=== PATIENT | female | born 1950 | race Caucasian/White ===

== ENCOUNTER 2016-11-20 07:36 | Outpatient (RCR) | payer MEDICARE ==
[~2016-11-20] VITALS: Ht 30.5 cm; Wt 0.5 kg
[2016-11-20] MEDS ORDERED: Midazolam 2mg/2ml Inj ONE (07:37)
[2016-11-20] MEDS ORDERED: Ketamine 500mg Inj ONE (07:37)
[2016-11-20] MEDS ORDERED: NS 550ML IV ONE (07:37)
[2016-11-20] MEDS ORDERED: Succinylcholine 20mg/ml 10ml vial ONE (07:37)
== END 2016-11-26 | disposition home or self-care (01) ==
LOC: ECT 07:36
DX: F33.2 Major depressive disorder, recurrent severe without psychotic features (principal); G47.33 Obstructive sleep apnea (adult) (pediatric); Z98.84 Bariatric surgery status
CPT/HCPCS: 90870; J0330; J2250; J3490; J7040

== ENCOUNTER 2016-12-16 07:17 | Outpatient (RCR) | payer MEDICARE ==
[~2016-12-16] VITALS: Ht 157.5 cm; Wt 118.4 kg
[2016-12-23] MEDS ORDERED: Succinylcholine 20mg/ml 10ml vial ONE (12:00)
[2016-12-23] MEDS ORDERED: NS 550ML IV ONE (12:00)
[2016-12-23] MEDS ORDERED: Midazolam 2mg/2ml Inj ONE (12:00)
[2016-12-23] MEDS ORDERED: Ketamine 500mg Inj ONE (12:00)
== END 2016-12-24 | disposition home or self-care (01) ==
LOC: ECT 07:17
DX: F33.2 Major depressive disorder, recurrent severe without psychotic features (principal); G47.33 Obstructive sleep apnea (adult) (pediatric); Z98.84 Bariatric surgery status
CPT/HCPCS: 90870; J0330; J2250; J2405; J3490; J7040

== ENCOUNTER 2017-01-20 06:11 | Outpatient (RCR) | payer MEDICARE ==
[~2017-01-20] VITALS: Ht 157.5 cm; Wt 118.4 kg
[2017-01-20] MEDS ORDERED: NS 550ML IV ONE (06:12)
[2017-01-20] MEDS ORDERED: Succinylcholine 20mg/ml 10ml vial ONE (06:12)
[2017-01-20] MEDS ORDERED: Midazolam 2mg/2ml Inj ONE (06:12)
[2017-01-20] MEDS ORDERED: Ketamine 500mg Inj ONE (06:12)
== END 2017-01-24 | disposition home or self-care (01) ==
LOC: ECT 06:11
DX: F33.2 Major depressive disorder, recurrent severe without psychotic features (principal); Z88.1 Allergy status to other antibiotic agents; Z88.0 Allergy status to penicillin
CPT/HCPCS: 90870; J0330; J2250; J3490; J7040

== ENCOUNTER 2017-02-26 05:39 | Outpatient (RCR) | payer MEDICARE ==
[~2017-02-26] VITALS: Ht 157.5 cm; Wt 118.4 kg
[2017-03-03] MEDS ORDERED: Ketamine 500mg Inj ONE (08:00)
[2017-03-03] MEDS ORDERED: Midazolam 2mg/2ml Inj ONE (08:00)
[2017-03-03] MEDS ORDERED: Succinylcholine 20mg/ml 10ml vial ONE (08:00)
[2017-03-03] MEDS ORDERED: NS 550ML IV ONE (08:00)
== END 2017-03-26 | disposition home or self-care (01) ==
LOC: ECT 05:39
DX: F33.2 Major depressive disorder, recurrent severe without psychotic features (principal); G47.33 Obstructive sleep apnea (adult) (pediatric); Z98.84 Bariatric surgery status
CPT/HCPCS: 90870; J0330; J2250; J3490; J7040

== ENCOUNTER 2017-03-31 06:47 | Outpatient (RCR) | payer MEDICARE ==
[~2017-03-31] VITALS: Ht 165.1 cm; Wt 72.6 kg
[2017-03-31] MEDS ORDERED: Succinylcholine 20mg/ml 10ml vial ONE (06:48)
[2017-03-31] MEDS ORDERED: Ketamine 500mg Inj ONE (06:48)
[2017-03-31] MEDS ORDERED: Midazolam 2mg/2ml Inj ONE (06:48)
[2017-03-31] MEDS ORDERED: NS 550ML IV ONE (06:48)
[2017-03-31] MEDS ORDERED: Atropine Sulfate 0.4mg/ml inj IVP PRN (10:23)
== END 2017-04-25 | disposition home or self-care (01) ==
LOC: ECT 06:47
DX: F33.2 Major depressive disorder, recurrent severe without psychotic features (principal)
CPT/HCPCS: 90870; J0330; J2250; J2405; J3490; J7040

== ENCOUNTER 2017-05-05 06:29 | Outpatient (RCR) | payer MEDICARE ==
[~2017-05-05] VITALS: Ht 157.5 cm; Wt 118.4 kg
[2017-05-05] MEDS ORDERED: Succinylcholine 20mg/ml 10ml vial ONE (06:30)
[2017-05-05] MEDS ORDERED: Ketamine 500mg Inj ONE (06:30)
[2017-05-05] MEDS ORDERED: NS 550ML IV ONE (06:30)
[2017-05-05] MEDS ORDERED: Midazolam 2mg/2ml Inj ONE (06:30)
== END 2017-05-26 | disposition home or self-care (01) ==
LOC: ECT 06:29
DX: F33.2 Major depressive disorder, recurrent severe without psychotic features (principal)
CPT/HCPCS: 90870; J0330; J2250; J2405; J3490; J7040

== ENCOUNTER 2017-06-02 07:18 | Outpatient (RCR) | payer MEDICARE ==
[~2017-06-02] VITALS: Ht 157.5 cm; Wt 118.4 kg
[2017-06-02] MEDS ORDERED: NS 550ML IV ONE (07:19)
[2017-06-02] MEDS ORDERED: Succinylcholine 20mg/ml 10ml vial ONE (07:19)
[2017-06-02] MEDS ORDERED: Ketamine 500mg Inj ONE (07:19)
[2017-06-02] MEDS ORDERED: Midazolam 2mg/2ml Inj ONE (07:19)
== END 2017-06-26 | disposition home or self-care (01) ==
LOC: ECT 07:18
DX: F33.2 Major depressive disorder, recurrent severe without psychotic features (principal)
CPT/HCPCS: 90870; J0330; J2250; J2405; J3490; J7040

== ENCOUNTER 2017-07-02 09:03 | Outpatient (RCR) | payer MEDICARE ==
[~2017-07-02] VITALS: Ht 157.5 cm; Wt 118.4 kg
[2017-07-02] MEDS ORDERED: NS 500ML IV ONE (09:04)
[2017-07-02] MEDS ORDERED: Ketamine 500mg Inj ONE (09:04)
[2017-07-02] MEDS ORDERED: Succinylcholine 20mg/ml 10ml vial ONE (09:04)
[2017-07-02] MEDS ORDERED: Sodium Chloride 500ML 500 ML IV ONE (16:45)
== END 2017-07-26 | disposition home or self-care (01) ==
LOC: ECT 09:03
DX: F33.2 Major depressive disorder, recurrent severe without psychotic features (principal)
CPT/HCPCS: 90870; J0330; J2405; J3490; J7040

== ENCOUNTER 2017-08-04 07:14 | Outpatient (RCR) | payer MEDICARE ==
[~2017-08-04] VITALS: Ht 157.5 cm; Wt 118.4 kg
[2017-08-04] MEDS ORDERED: Ketamine 500mg Inj ONE (07:15)
[2017-08-04] MEDS ORDERED: Midazolam 2mg/2ml Inj ONE (07:15)
[2017-08-04] MEDS ORDERED: NS 500ML IV ONE (07:15)
[2017-08-04] MEDS ORDERED: Succinylcholine 20mg/ml 10ml vial ONE (07:15)
[2017-08-11] MEDS ORDERED: Sodium Chloride 500ML 500 ML IV ONE (10:54)
== END 2017-08-26 | disposition home or self-care (01) ==
LOC: ECT 07:14
DX: F33.2 Major depressive disorder, recurrent severe without psychotic features (principal)
CPT/HCPCS: 90870; J0330; J2250; J2405; J3490; J7040

== ENCOUNTER 2017-09-10 07:28 | Outpatient (RCR) | payer MEDICARE ==
[~2017-09-10] VITALS: Ht 157.5 cm; Wt 118.4 kg
[2017-09-10] MEDS ORDERED: Succinylcholine 20mg/ml 10ml vial ONE (07:29)
[2017-09-10] MEDS ORDERED: Midazolam 2mg/2ml Inj ONE (07:29)
[2017-09-10] MEDS ORDERED: NS 500ML ONE (07:29)
[2017-09-10] MEDS ORDERED: Ketamine 500mg Inj ONE (07:29)
[2017-09-10 09:45] VITALS: BP 144/99
[2017-09-10] MEDS ORDERED: Sodium Chloride 500ML 500 ML IV ONE (10:04)
[2017-09-10 10:05] VITALS: BP 135/56
[2017-09-10 10:10] VITALS: BP 113/50
[2017-09-10 10:15] VITALS: BP 117/56
[2017-09-10 10:20] VITALS: BP 115/59
== END 2017-09-25 | disposition home or self-care (01) ==
LOC: ECT 07:28
DX: F33.2 Major depressive disorder, recurrent severe without psychotic features (principal)
CPT/HCPCS: 90870; J0330; J2250; J2405; J3490; J7040

== ENCOUNTER 2017-09-29 06:10 | Outpatient (RCR) | payer MEDICARE ==
[~2017-09-29] VITALS: Ht 30.5 cm; Wt 0.5 kg
[2017-09-29] MEDS ORDERED: Ketamine 500mg Inj ONE (06:11)
[2017-09-29] MEDS ORDERED: NS 500ML ONE (06:11)
[2017-09-29] MEDS ORDERED: Midazolam 2mg/2ml Inj ONE (06:11)
[2017-09-29] MEDS ORDERED: Succinylcholine 20mg/ml 10ml vial ONE (06:11)
[2017-09-29 10:44] VITALS: BP 126/78
[2017-09-29] MEDS ORDERED: Sodium Chloride 500ML 500 ML IV ONE (11:01)
[2017-09-29 11:05] VITALS: BP 123/56
[2017-09-29 11:10] VITALS: BP 106/54
[2017-09-29 11:15] VITALS: BP 113/66
[2017-09-29 11:20] VITALS: BP 117/56
== END 2017-10-26 | disposition home or self-care (01) ==
LOC: ECT 06:10
DX: F33.2 Major depressive disorder, recurrent severe without psychotic features (principal)
CPT/HCPCS: 90870; J0330; J2250; J2405; J3490; J7040

== ENCOUNTER 2017-11-03 05:42 | Outpatient (RCR) | payer MEDICARE ==
[~2017-11-03] VITALS: Ht 157.5 cm; Wt 118.4 kg
[2017-11-03] MEDS ORDERED: Midazolam 2mg/2ml Inj ONE (05:43)
[2017-11-03] MEDS ORDERED: Ketamine 500mg Inj ONE (05:43)
[2017-11-03] MEDS ORDERED: NS 500ML ONE (05:43)
[2017-11-03] MEDS ORDERED: Succinylcholine 20mg/ml 10ml vial ONE (05:43)
[2017-11-03 10:00] VITALS: BP 139/84
[2017-11-03 10:28] VITALS: BP 100/37
[2017-11-03] MEDS ORDERED: Sodium Chloride 500ML 500 ML IV ONE (10:28)
[2017-11-03] MEDS ORDERED: Atropine Sulfate 0.4mg/ml inj IVP PRN (10:28)
[2017-11-03 10:32] VITALS: BP 91/39
[2017-11-03 10:38] VITALS: BP 93/35
[2017-11-03 10:43] VITALS: BP 96/32
[2017-11-03 10:48] VITALS: BP 119/77
== END 2017-11-26 | disposition home or self-care (01) ==
LOC: ECT 05:42
DX: F33.2 Major depressive disorder, recurrent severe without psychotic features (principal); G47.33 Obstructive sleep apnea (adult) (pediatric); Z87.11 Personal history of peptic ulcer disease; Z98.84 Bariatric surgery status
CPT/HCPCS: 90870; J0330; J2250; J2405; J3490; J7040

== ENCOUNTER 2017-12-08 06:45 | Outpatient (RCR) | payer MEDICARE ==
[~2017-12-08] VITALS: Ht 30.5 cm; Wt 0.5 kg
[2017-12-08 09:37] VITALS: BP 117/68
[2017-12-08] MEDS ORDERED: NS 500ML ONE (09:55)
[2017-12-08] MEDS ORDERED: Midazolam 2mg/2ml Inj ONE (09:55)
[2017-12-08] MEDS ORDERED: Sodium Chloride 500ML 500 ML IV ONE (09:55)
[2017-12-08] MEDS ORDERED: Ketamine 500mg Inj ONE (09:55)
[2017-12-08] MEDS ORDERED: Succinylcholine 20mg/ml 10ml vial ONE (09:55)
[2017-12-08 10:00] VITALS: BP 125/46
[2017-12-08 10:05] VITALS: BP 98/42
[2017-12-08 10:10] VITALS: BP 96/46
[2017-12-08 10:15] VITALS: BP 96/53
[2017-12-08 10:20] VITALS: BP 95/47
== END 2017-12-24 | disposition home or self-care (01) ==
LOC: ECT 06:45
DX: F33.2 Major depressive disorder, recurrent severe without psychotic features (principal)
CPT/HCPCS: 90870; J0330; J2250; J2405; J3490; J7040

== ENCOUNTER 2018-01-05 11:51 | Outpatient (RCR) | payer MEDICARE ==
[~2018-01-05] VITALS: Ht 157.5 cm; Wt 118.4 kg
[2018-01-05] MEDS ORDERED: Succinylcholine 20mg/ml 10ml vial ONE (11:52)
[2018-01-05] MEDS ORDERED: NS 500ML ONE (11:52)
[2018-01-05] MEDS ORDERED: Midazolam 2mg/2ml Inj ONE (11:52)
[2018-01-05] MEDS ORDERED: Ketamine 500mg Inj ONE (11:52)
[2018-01-05 12:35] VITALS: BP 121/59
[2018-01-05] MEDS ORDERED: Atropine Sulfate 0.4mg/ml inj IVP PRN (13:01)
[2018-01-05] MEDS ORDERED: Sodium Chloride 500ML 500 ML IV ONE (13:01)
[2018-01-05 13:05] VITALS: BP 114/49
[2018-01-05 13:10] VITALS: BP 102/41
[2018-01-05 13:15] VITALS: BP 105/39
[2018-01-05 13:20] VITALS: BP 93/41
[2018-01-05 13:25] VITALS: BP 96/40
== END 2018-01-24 | disposition home or self-care (01) ==
LOC: ECT 11:51
DX: F33.2 Major depressive disorder, recurrent severe without psychotic features (principal)
CPT/HCPCS: 90870; J0330; J2250; J2405; J3490; J7040

== ENCOUNTER 2018-02-09 05:21 | Outpatient (RCR) | payer MEDICARE | END 2018-02-23 | disposition home or self-care (01) | LOC: ECT 05:21 | DX: Z53.9 Procedure and treatment not carried out, unspecified reason (principal) ==